=== PATIENT | female | born 1955 | race Two or more races ===

== ENCOUNTER 2024-03-13 19:06 | Emergency (ER) | payer OTHER ==
[~2024-03-13] VITALS: Ht 162.6 cm; Wt 58.5 kg
[2024-03-13] MEDS ORDERED: VERAPAMIL ER120 MG PO (19:26)
[2024-03-13] MEDS ORDERED: ONDANSETRON HCL 2 MG/ML VIAL IV ONE (20:15)
[2024-03-13] MEDS ORDERED: DICYCLOMINE HCL 20 MG TABLET PO ONE (20:15)
[2024-03-13] MEDS ORDERED: FAMOtidine 10 MG/ML (4ML VIAL) IV ONE (20:15)
[2024-03-13] MEDS ORDERED: 0.9 % SODIUM CHLORIDE 1,000 ML IV ONE (20:15)
[2024-03-13] MEDS ORDERED: ONDANSETRON HCL 2 MG/ML VIAL ONE (20:33)
[2024-03-13] MEDS ORDERED: FAMOTIDINE/PF 20 MG/2 ML VIAL ONE (20:34)
[2024-03-13] MEDS ORDERED: DICYCLOMINE HCL 10 MG CAPSULE PO ONE (20:34)
[2024-03-13 21:29] LABS: HEMATOCRIT 38.2 % (36.0-45.00); HEMOGLOBIN 12.8 g/dL (12.0-15.00); MEAN CELL VOLUME 86.6 fL (80.00-100.00); MEAN CORPUSCULAR HGB CONC 33.5 g/dl (32.0-36.0); PLATELET COUNT 252 K/uL (150-450); RED BLOOD COUNT 4.41 M/uL (4.00-6.00); RED CELL DISTRIBUTION WIDTH 13.4 % (11.5-14.5)
[2024-03-13] MEDS ORDERED: PROTONIX40 MG PO (23:22)
== END 2024-03-13 23:42 | disposition home or self-care (01) ==
LOC: ER 19:08
PROVIDERS: General Practice
DX: R11.0 Nausea (principal); I10 Essential (primary) hypertension; Z88.2 Allergy status to sulfonamides; Z20.822 Contact with and (suspected) exposure to COVID-19
CPT/HCPCS: 36415; 96365; 99282; J2405; J3490; J7030